=== PATIENT | male | born 1950 | race Caucasian/White ===

== ENCOUNTER → 2017-12-15 09:52 | Outpatient (CLI) | payer MEDICARE, OTHER, SELFPAY ==
[2017-12-15 11:09] LABS: Hematocrit 43.9 % (40-54); Hemoglobin 14.9 g/dl (13.0-16.5); Mean Corp Hgb Conc 33.9 g/gl (32-36); Mean Corpuscular Hgb 32.2 pg (27.0-32.0); Mean Corpuscular Volume 94.8 fL (80-94); Mean Platelet Vol. 9.6 fl (6.2-12.0); Platelet Count 214 K/mm3 (150-450); RBC Distribution Width CV 13.4 % (11.6-14.6); RBC Distribution Width SD 44.8 fl (35.1-43.9); Red Blood Count 4.63 M/mm3 (4.6-6.2); White Blood Count 7.7 K/mm3 (4.4-11.0)
[2017-12-15 11:10] LABS: Scan Indicated on CBC? Y/N NO
[2017-12-15 11:56] LABS: Anion Gap 7 (5-15); BUN 15 mg/dL (7-18); BUN/Creat Ratio 12.8 RATIO (10-20); Calcium,Total 8.4 mg/dL (8.5-10.1); Chloride 103 mmol/L (98-107); Creatinine, Serum 1.17 mg/dL (0.70-1.30); EST Glomerular Filtration Rate 66 mL/min (>60); Est Glom Filt Rate - Afr Amer 80 mL/min (>60); Glucose 122 mg/dL (74-106); Potassium 3.8 mmol/L (3.5-5.1); Sodium Level 139 mmol/L (136-145)
== END ==
PROVIDERS: Family Provider Family Medicine; PCP Family Medicine; Visit Provider Surgery
DX: E78.5 Hyperlipidemia, unspecified (principal); I10 Essential (primary) hypertension; E66.9 Obesity, unspecified; Z01.812 Encounter for preprocedural laboratory examination
CPT/HCPCS: 36415; 80048; 85027

== ENCOUNTER 2018-10-24 14:43 | Emergency (ER) | payer MEDICARE, OTHER, SELFPAY ==
[2018-10-24] VITALS (8 sets, daily range): BP systolic 134–149; BP diastolic 69–81; PULSE 64–78; RESP 14–69; TEMP 36.7–37.3; O2SAT 95–99; BMI 34.4
--- NOTE | 2018-10-24 15:50 | EKG12_ITS ---
Test Reason : Blood Pressure : / mmHG Vent. Rate : 069 BPM Atrial Rate : 069 BPM P-R Int : 148 ms QRS Dur : 124 ms QT Int : 432 ms P-R-T Axes : 016 -10 030 degrees QTc Int : 462 ms Normal sinus rhythm Non-specific intra-ventricular conduction delay Borderline ECG Confirmed by JOSH HERRERA, EUGENIA ([id number]), video news editor KENDALL BRADLEY ([id number]) on 10/27/2018 1:37:34 PM Referred By: RAIN Confirmed By:EUGENIA MORENO MD
--- NOTE | 2018-10-24 15:53 | ED.DCSUM_ITS ---
- ER Visit Summary Date of Service: 10/24/18 Chief Complaint: Low hemoglobin History of Present Illness: The patient is a 68 M who is otherwise healthy with only significant past medical history of hypercholesterolemia presents to the emergency department with a low hemoglobin. The patient states that he is been having intermittent flank pain for the past month. He also admits to intermittent exertional dyspnea. He states he went to urgent care today. He states that they did blood work and he was told that his hemoglobin was low. He was sent over for further evaluation. The patient does drink alcohol daily. He states over the past 4 or 5 days, he has had maroon colored stools. He denies any nausea. He had no vomiting. He does not take anticoagulants. He denies any fevers or chills. Physical Examination: Vital signs reviewed General: Well-nourished, well-developed Head: Normocephalic, atraumatic Eyes: Pupils equal and reactive, extraocular muscles intact Neck, supple, no lymphadenopathy Heart: Regular rate and rhythm Respiratory: No distress, clear bilaterally Abdomen: Soft, nontender, nondistended, no peritoneal signs Back: Nontender Extremities: Nontender, no edema, no cords Skin: Normal color no rash Neuro: Alert and oriented, no focal or lateralizing deficits Test Results: [] Emergency Department Course and Treatment: The patient was discussed with Dr. Coyne on arrival. He does have a history of alcohol abuse. He had no vomiting. He has no abdominal pain on evaluation. I do have some concern that this may be upper especially given the patient's history of alcohol abuse. I do feel that he would best be suited at a tertiary facility with GI if this is the case. The patient is very stable. His blood pressure was normal. His heart rate is normal. I did repeat his labs. His hemoglobin is 6.3 and he was typed and crossed for 2 units of blood. Lactate is normal. At the patient's request, he will be transferred to [facility][1] for GI intervention. He was given IV Prot sonido. Again, the patient is stable and I do feel that he is safe for medical admission. He was accepted by Dr. Alvarado. Treatment Plan: [] Disposition: Transfer Impression: 1. GI bleed 2. Symptomatic anemia This note was generated with [employer] dictation software. It may contain incorrect words, spelling, and punctuation that were not noted in review of the chart prior to signing ED Disposition - Plan for ED Patient: Chief Complaint: Abn Labs Referrals: Lisa Medina MD [Primary Care Provider] -
[2018-10-24] MEDS: 0.9% Normal Saline 1,000 ML 1000 ML IV (16:11)
[2018-10-24 16:32] LABS: Absolute Lymphocyte Count 1.97 X10^3/ul (0.83-4.51); Absolute Neutrophil Count 6.1 X10^3/uL (2.0-7.7); Basophil# 0.07 X10^3/uL; Basophil% 0.7 % (0-1); Eosinophil# 0.28 X10^3/uL; Eosinophils% 2.9 % (0-5); Hematocrit 23.7 % (40-54); Hemoglobin 6.3 g/dl (13.0-16.5); Lymphocyte # 1.97 X10^3/ul (4.0); Lymphocyte % 20.6 % (19-41); Mean Corp Hgb Conc 26.6 g/gl (32-36); Mean Corpuscular Hgb 16.8 pg (27.0-32.0); Mean Platelet Vol. 8.4 fl (6.2-12.0); Monocyte# 1.14 X10^3/uL; Monocyte% 11.9 % (0-10); Neutrophil # 6.07 X10^3/uL (2.7-7.7); Neutrophil % 63.8 % (47-70); Platelet Count 424 K/mm3 (150-450); RBC Distribution Width CV 19.8 % (11.6-14.6); Red Blood Count 3.76 M/mm3 (4.6-6.2); White Blood Count 9.5 K/mm3 (4.4-11.0)
[2018-10-24 16:34] LABS: Differential Indicated SCAN CRITERIA MET; POSITIVE COUNT NO; POSITIVE DIFFERENTIAL NO; POSITIVE MORPHOLOGY YES
[2018-10-24 16:36] LABS: Bacteria 0 SEEN /hpf (None Seen); Mucous, Urine 0 SEEN /hpf (<or=2+); Red Blood Cells-Urine 0 SEEN /hpf (0-5); White Blood Cells 0 SEEN /hpf (0-5)
[2018-10-24 16:41] LABS: International Normalized Ratio 1.2; Prothrombin Time (Protime)PT. 14.7 SECONDS (11.7-14.9)
[2018-10-24 16:42] LABS: ALB/GLOB Ratio 1.1 RATIO (0.9-2.4); AST(SGOT) 15 U/L (15-37); Alanine Aminotransfer ALT/SGPT 21 U/L (16-61); Albumin, Serum 3.6 g/dL (3.2-5.0); Alkaline Phosphatase 70 U/L (45-117); Anion Gap 9 (5-15); BUN 18 mg/dL (7-18); Calcium,Total 8.1 mg/dL (8.5-10.1); Chloride 107 mmol/L (98-107); Creatinine, Serum 0.86 mg/dL (0.70-1.30); EST Glomerular Filtration Rate 94 mL/min (>60); Est Glom Filt Rate - Afr Amer 114 mL/min (>60); Estimated Creatinine Clearance 84.88 ml/min; Globulin 3.2 g/dL (2.2-4.2); Glucose 97 mg/dL (74-106); Potassium 3.6 mmol/L (3.5-5.1); Protein, Total 6.8 g/dL (6.4-8.2); Sodium Level 140 mmol/L (136-145)
[2018-10-24 16:50] LABS: Lactic Acid 1.2 mmol/L (0.4-2.0)
[2018-10-24 17:12] LABS: Differential Comment SCANNED; Hypochromasia 1+; Ovalocyte 1+
[2018-10-24 17:13] LABS: Schistocytes RARE
[2018-10-24 17:14] LABS: Color, Urine Yellow (Yellow); Glucose, Dipstick Normal (Normal); Ketone-Dipstick Negative (Negative); Leukocyte Esterase-Dipstick Negative /ul (Negative); Nitrite-Dipstick Negative (Negative); Occult Blood-Urine Negative /ul (Negative); Protein-Dipstick Negative (Negative); Urine Bilirubin Dipstick Negative (Negative); Urine Clarity Clear (Clear); Urine Urobilinogen Normal (Normal)
[2018-10-24 17:24] LABS: Squamous Epithelial Cells - UA 5-10 SEEN /hpf (0-5)
--- NOTE | 2018-10-24 20:43 | ED.RN ---
PT OUT OF ED WITH [facility] FOR TRANSPORT TO [facility].
== END 2018-10-24 20:30 | disposition short-term general hospital (02) ==
PROVIDERS: Emergency Provider Emergency Medicine; Family Provider Family Medicine; PCP Family Medicine
DX: K92.2 Gastrointestinal hemorrhage, unspecified (principal); D64.9 Anemia, unspecified; F10.10 Alcohol abuse, uncomplicated; Y90.9 Presence of alcohol in blood, level not specified; E78.00 Pure hypercholesterolemia, unspecified
CPT/HCPCS: 36430; 80053; 81001; 82274; 83605; 84484; 85025; 85610; 86850; 86900; 86920; 86922; 93005; 99285; J7030; P9016